=== PATIENT | female | born 1990 | race Caucasian/White ===

== ENCOUNTER 2017-06-12 14:16 | Inpatient (IN) | payer OTHER ==
[2017-06-12] MEDS ORDERED: KETAMINE 500 MG/10 ML VIAL ONE (14:20)
[2017-06-12] MEDS ORDERED: MIDAZOLAM 2 MG/2 ML VIAL ONE (14:21)
[2017-06-12] MEDS ORDERED: fentaNYL 250 MCG/5 ML INJ ONE ×2 (14:21→18:14)
[2017-06-12] MEDS ORDERED: KETAMINE 500 MG/10 ML VIAL NASAL ONE ×2 (14:25→16:45)
--- NOTE | 2017-06-12 14:26 | EDPHY ---
H & P Time Seen by Provider: 06/12/17 14:26 HPI/ROS: CHIEF COMPLAINT: Right leg injury HISTORY OF PRESENT ILLNESS: Patient brought in by ambulance from [facility]. She was a helmeted skier that hit a tree. Per EMS report her right leg head of her approximately 10 in diameter tree. She had immediate pain to the right thigh. She was not knocked out. She has no other complaints. She is otherwise healthy. She was given multiple doses of fentanyl as well as Versed in route to [facility]. Per EMS traction splint was applied by gizzard skin remover. Distal CMS has been intact throughout. It did not provide her much pain relief. Patient tells me she has normal feeling in her right foot. She denies other complaints. She denies chest pain, shortness of breath, abdominal pain or headache. She states her last menstrual period just ended and she has an IUD in place. Last oral intake was at 8:30 a.m. This morning. REVIEW OF SYSTEMS: Constitutional: No fever, no chills. Eyes: No discharge. ENT: No sore throat. Cardiovascular: No chest pain, no palpitations. Respiratory: No cough, no shortness of breath. Gastrointestinal: No abdominal pain, no vomiting. Genitourinary: No dysuria. Musculoskeletal: No back pain. Skin: No rashes. Neurological: No headache. General Appearance: Alert, in distress. Eyes: Pupils equal and round no pallor or injection. ENT, Mouth: Mucous membranes moist. Respiratory: There are no retractions, lungs are clear to auscultation. Cardiovascular: Regular rate and rhythm. Gastrointestinal: Abdomen is soft and nontender, no masses, bowel sounds normal. Neurological: Awake alert, movement in all 4 extremities, no focal neuro deficits. Skin: Warm and dry, no rashes. Musculoskeletal: Neck is supple nontender. Range of motion to right leg limited by pain and traction splint. Right foot sensation movement circulation intact. Some rotational deformity to right lower extremity. Bilateral upper extremities normal. Left lower extremity normal. Psychiatric: Patient is oriented X 3, there is no agitation. Medical/surgical history: Dental surgery otherwise noncontributory Social history: Lives in [place], nonsmoker. Constitutional: Initial Vital Signs Heart Rate 98 06/12/17 14:15 Respiratory Rate 20 06/12/17 14:15 Blood Pressure 117/79 06/12/17 14:15 O2 Sat (%) 95 06/12/17 14:15 O2 Delivery Mode Room Air Allergies/Adverse Reactions: amoxicillin Allergy (Verified 06/12/17 14:27) Penicillins Allergy (Verified 06/12/17 14:27) Home Medications: Medication Instructions Recorded Levothyroxine [Synthroid 100 mcg 100 mcg PO DAILY06 06/12/17 (*)] Methylphenidate HCl [Concerta] 18 mg PO DAILY PRN 06/12/17 Medical Decision Making - Diagnostics Imaging Results: Imaging Impressions Fluoroscopy 06/12/17 00:00 Impression: Intraoperative fluoroscopy provided during ORIF for a mid- diaphyseal femoral fracture Bedside radiology demonstrates midshaft femur fracture with displacement. Imaging: I viewed and interpreted images myself ED Course/Re-evaluation: Patient quite uncomfortable on arrival in emergency department an intranasal ketamine given. This provided considerable relief. Discussed patient with Dr. Juan Carlos De Souza at 2:44 p.m. and notified of femur fracture. He states he will call the OR with plan for ORIF. Discussed with Dr. Arias, trauma surgery, at 3:05 p.m.. Procedure: Trauma ultrasound. Limited echocardiogram for pericardial effusion. Limited bedside ultrasound was performed and interpreted by myself for the indication of: thoracoabdominal trauma utilizing the thoracoabdominal emergency ultrasound protocol. Limited transthoracic echocardiogram: The pericardium was visualized and found to be negative for pericardial fluid. The study was negative for pericardial effusion. Limited abdominal ultrasound for blunt abdominal trauma. 1) The right upper quadrant was visualized and was found to be negative for intraperitoneal fluid. 2) The left upper quadrant was visualized and found to be negative for intraperitoneal fluid. The study was felt to be negative for free intraperitoneal fluid. Limited pelvic ultrasound was conducted for abdominal trauma. The bladder was visualized and did not reveal an anechoic area outside of the adjacent urinary bladder. The study was felt to be negative for free intraperitoneal fluid. Patient requiring repeat analgesia while awaiting transfer to the OR. Multiple re-evaluations during patient's time in the emergency department shows pain under control. Remains alert, hemodynamically stable. Differential Diagnosis: Differential diagnosis includes but is not limited to blunt chest trauma, blunt abdominal trauma, pelvic fracture, femur fracture, hip fracture, concussion. After evaluation only injury noted in the emergency department is a midshaft femur fracture that is closed. No indication of head, chest, abdominal trauma. Patient will be admitted to the trauma surgery service with plan for surgical repair of her right femur fracture. Critical Care Time: I spent a total of 60 minutes of critical care time in obtaining history, performing a physical exam, bedside monitoring of interventions, collecting and interpreting tests and discussion with consultants but not including time spent performing procedures. - Data Points Medications Given: Hydrocodone Bitart/Acetaminophen ([place] 5/325) 1 - 2 tab PO Q6HRS PRN PRN Reason: Pain, Moderate Able to Take PO Stop: 06/22/17 15:21 Last Admin: 06/13/17 00:32 Dose: 1 tab Hydromorphone/Sodium Chloride (Hydromorphone) 0.2 - 0.5 mg IVP Q1 PRN PRN Reason: Pain, Severe Unable to Take PO Stop: 06/22/17 15:21 Last Admin: 06/13/17 04:40 Dose: 0.5 mg Hydromorphone/Sodium Chloride (Hydromorphone) 0.2 - 0.4 mg IV .Q5M PRN PRN Reason: Pain, Severe Stop: 06/22/17 17:56 Last Admin: 06/12/17 18:04 Dose: 0.4 mg Lactated Ringer's (Lr) 1,000 mls @ 125 mls/hr IV CONT NORY Stop: 12/09/17 15:29 Last Admin: 06/12/17 22:31 Dose: 1,000 mls Clindamycin Phosphate/Dextrose (Cleocin 900 Mg (Premix)) 50 mls @ 100 mls/hr IV Q8H NORY PRN Reason: Protocol Stop: 07/13/17 01:59 Last Admin: 06/13/17 02:30 Dose: 50 mls Levothyroxine Sodium (Synthroid) 100 mcg PO DAILY06 NORY Stop: 12/10/17 05:59 Last Admin: 06/13/17 04:40 Dose: 100 mcg Discontinued Medications Bacitracin (Bacitracin Syringe) Confirm Administered Dose 50,000 units IRR .STK- MED ONE Stop: 06/12/17 17:07 Last Admin: 06/12/17 19:23 Dose: 50,000 units Bupivacaine HCl/Epinephrine Bitart (Bupivacaine/Epi) Confirm Administered Dose 30 ml .ROUTE .STK-MED ONE Stop: 06/12/17 17:07 Last Admin: 06/12/17 19:25 Dose: 30 ml Fentanyl (Sublimaze) 100 mcg IVP ONCE ONE Stop: 06/12/17 16:56 Last Admin: 06/12/17 17:02 Dose: 100 mcg Fentanyl (Sublimaze) 25 - 100 mcg IVP Q5M PRN PRN Reason: PACU, IMMEDIATE Pain control Stop: 06/12/17 19:55 Last Admin: 06/12/17 22:02 Dose: 50 mcg Sodium Chloride (Ns) 1,000 mls @ 0 mls/hr IV ONCE ONE PRN Reason: Wide Open Stop: 06/12/17 14:38 Last Admin: 06/12/17 14:30 Dose: 1,000 mls Clindamycin Phosphate/Dextrose (Cleocin 900 Mg (Premix)) 50 mls @ 100 mls/hr IV ONCALL ONE PRN Reason: Protocol Stop: 06/12/17 17:58 Last Admin: 06/12/17 18:19 Dose: 50 mls Clindamycin Phosphate/Dextrose (Cleocin 900 Mg (Premix)) 50 mls @ 100 mls/hr IV Q8H NORY PRN Reason: Protocol Stop: 07/13/17 01:59 Last Admin: 06/13/17 02:51 Dose: Not Given Ketamine HCl (Ketamine) 50 mg NASAL EDNOW ONE Stop: 06/12/17 14:26 Last Admin: 06/12/17 14:26 Dose: 50 mg Ketamine HCl (Ketamine) 50 mg NASAL EDNOW ONE Stop: 06/12/17 16:46 Last Admin: 06/12/17 16:46 Dose: 50 mg Ondansetron HCl (Zofran) 2 - 4 mg IVP Q10M PRN PRN Reason: PACU, Nausea/Vomiting Stop: 06/12/17 19:55 Last Admin: 06/12/17 21:37 Dose: 4 mg Polymyxin B Sulfate (Polymyxin B Syringe) Confirm Administered Dose 500,000 unit IRR .STK-MED ONE Stop: 06/12/17 17:07 Last Admin: 06/12/17 19:27 Dose: 500,000 unit Departure - Departure Disposition: [facility]
[2017-06-12] MEDS ORDERED: NS 1,000 ML IV ONE (14:37)
[2017-06-12] MEDS ORDERED: ONDANSETRON 4 MG/2 ML VIAL IVP PRN ×2 (15:22→18:55)
[2017-06-12] MEDS ORDERED: ACETAMINOPHEN 325 MG TAB PO PRN (15:22)
[2017-06-12] MEDS ORDERED: ALBUTEROL 60 PUFFS/8 GM MDI IH PRN (15:26)
[2017-06-12] MEDS ORDERED: LR 1,000 ML IV SCH (15:30)
[2017-06-12] MEDS ORDERED: HYDROmorphONE/DILAUDID 2 MG/ML INJ ONE ×3 (15:31→17:47)
[2017-06-12] MEDS: HYDROmorphone HCL/NS 0.5 MG/ML SYR IVP PRN (15:35)
--- NOTE | 2017-06-12 15:41 | GHP ---
[f rep st] PREOP HISTORY AND PHYSICAL DATE OF ADMISSION: 06/12/2017 REASON FOR EVALUATION: Limited trauma. HISTORY OF PRESENT ILLNESS: 26-year-old healthy female, a helmeted skier, lost her footing on an ice patch while skiing at [place]. She apparently collided into a tree with her leading right leg. She denied loss of consciousness. She denied any other injuries. She was brought to the [facility] emergency room for further evaluation and management. Workup disclosed a displaced femoral fracture. Trauma has been requested for further evaluation and management. At present time, the patient is comfortable, having received a dose of ketamine. She is without any other specific complaints. She specifically denies headaches , visual changes, neck pain, chest pain, shortness of breath, or abdominal complaints. She denies extremity numbness or tingling. PAST MEDICAL HISTORY: Manda thyroiditis, asthma. PAST SURGICAL HISTORY: Denies. MEDICATIONS: ProAir p.r.n., levothyroxine. ALLERGIES: No known drug allergies. SOCIAL HISTORY: No significant alcohol or tobacco. 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 FAMILY HISTORY: Noncontributory. REVIEW OF SYSTEMS: Negative 10-point review. PHYSICAL EXAM: VITAL SIGNS: Blood pressure 120/80, pulse 98, respirations 20, 95% saturation on room air. GENERAL: The patient is currently alert, appropriate, comfortable. HEENT: Unremarkable. NECK: Nontender. Trachea midline without crepitus. HEART: Regular without murmurs. LUNGS: Clear without wheezes. CHEST WALL: Nontender without step-offs or deformities. ABDOMEN: Soft, nontender, nondistended. PELVIS: Nontender. SPINE: Thoracic and lumbar spines nontender. EXTREMITIES: 2+ femoral, popliteal, and dorsalis pedis pulses bilaterally. Right lower extremity in a traction splint. A warm, sensate foot. Normal left lower extremity. Normal bilateral upper extremities. IMAGING: Femur x-ray with a displaced distal femur fracture. IMPRESSION: Isolated femur fracture, status post ski injury. PLAN: Orthopedic Surgery has been consulted for reduction and fixation. No other acute traumatic issues are noted at this time. /[id number]/MODL MTDD
[2017-06-12] MEDS ORDERED: fentaNYL 100 MCG/2 ML INJ IVP ONE (16:55)
[2017-06-12] MEDS ORDERED: fentaNYL 100 MCG/2 ML INJ ONE ×2 (16:59→21:31)
[2017-06-12] MEDS ORDERED: POLYMYXIN B SULFATE 500,000 UNIT/10 ML SYR IRR ONE (17:06)
[2017-06-12] MEDS ORDERED: BACITRACIN 50,000 UNITS/10 ML SYR IRR ONE (17:06)
[2017-06-12] MEDS ORDERED: BUPIVACAINE/EPI 0.5% 30 ML SDV ONE (17:06)
[2017-06-12] MEDS ORDERED: CLINDAMYCIN 900 MG/DEXTROSE 50 ML IV ONE (17:29)
[2017-06-12] MEDS ORDERED: CLINDAMYCIN 900 MG/DEXTROSE/50 ML BAG IV ONE (17:33)
[2017-06-12] MEDS ORDERED: PROPOFOL/EMULSION 500 MG/50 ML BOTTLE IV ONE (17:55)
[2017-06-12] MEDS: HYDROmorphone HCL/NS 0.5 MG/ML SYR IV PRN ×2 (17:57→18:04)
--- NOTE | 2017-06-12 18:32 | GCON ---
[f rep st] CONSULTATION CHIEF COMPLAINT: Right lower extremity pain. HISTORY OF PRESENT ILLNESS: A 26-year-old female skier who lost control on an icy groomed run at [place] and hit a tree with her right leg. She denies head trauma or loss of consciousness. She denies any other pain other than her right thigh and increasingly right foot. X-rays were taken in the emergency department revealing a transverse distal femoral shaft fracture, with minimal comminution. She is currently denying any other complaints or any other sources of pain. She denies headaches, visual changes, neck pain, chest pain, shortness of breath, abdominal pain, numbness or tingling. PAST MEDICAL HISTORY: Manda thyroiditis, asthma, attention deficit hyperactivity disorder. PAST SURGERY HISTORY: None. MEDICATIONS: levothyroxine, ProAir as needed, Concerta. ALLERGIES: amoxicillin and penicillin. SOCIAL HISTORY: Patient denies tobacco or nicotine use. She admits to occasional marijuana use as well as a daily glass of wine. Tthe patient does admit to "1 hit of marijuana" this morning at 7:30 or 8 as well as sharing 1 beer around 9 a.m. between 3 people. FAMILY HISTORY: Noncontributory. REVIEW OF SYSTEMS: 10-point review of systems is negative except for as in HPI. PHYSICAL EXAMINATION: VITAL SIGNS: Blood pressure is 120/80, pulse 98, respirations 20, 95% O2 saturation on room air. GENERAL: The patient is awake , alert, and oriented x3. She is anxious and occasionally crying during her interview. HEENT: Unremarkable. Normocephalic, atraumatic. NECK: Nontender. RESPIRATORY: Easy nonlabored breathing. ABDOMEN: Soft, nontender, nondistended. PELVIS: Nontender to palpation. RIGHT LOWER EXTREMITY: In traction device. foot at 90 degrees of ER. She does not have tenderness to palpation over the greater trochanter. There is significant swelling of her right thigh; however, compartments are compressible. Her right lower extremity is in a traction splint with the distal aspect of the fracture site externally rotated 90 degrees compared to the proximal aspect. She has 2+ femoral, popliteal, and DP pulses bilaterally. Sensation is intact to light touch from L3 to S1. She has motor intact to EHL , FHL, tibialis anterior, and gastrocsoleus. IMAGING: Two views of the femur and 2 views of the hip reveal a distal 3rd femoral shaft fracture, transverse, with minimal comminution. There does not appear to be a femoral neck fracture. However, the AP of the hip x-ray is obscured. ASSESSMENT/PLAN: A 26-year-old female with a right distal femoral shaft simple transverse fracture. No femoral neck fracture is noted at this time; however, will be evaluated further. At this time I have recommended that the patient undergo closed reduction and intramedullary nailing of her right femur. The risks and benefits of the procedure were explained in great to detail, which include the inherent risks of general anesthesia, general risks of surgery including bleeding, infection, damage to surrounding anatomic structures. Specific to this procedure there is an increased incidence of hip pain at the nail entry site as well as abductor muscle or tendon damage due to the nail entry. There is also a risk of malunion, nonunion, rotational malalignment, symptomatic hardware, additional surgery, heterotopic ossification in the hip abductors, perforation of the femoral cortex, pudendal nerve injury using the fracture table. The patient understands and agrees with these risks and benefits and her consent was signed. All of her questions were answered. /[id number]/MODL MTDD
[2017-06-12] MEDS ORDERED: PROMETHAZINE HCL 25 MG/ML INJ IVP PRN (18:55)
[2017-06-12] MEDS ORDERED: ALBUTEROL 3 ML DEYVIAL IH PRN (18:55)
[2017-06-12] MEDS ORDERED: DIAZEPAM 5 MG/ML 1 ML SYR IVP PRN (18:55)
[2017-06-12] MEDS ORDERED: HYDROmorphone HCL/NS 0.5 MG/ML SYR IVP PRN ×2 (18:55→21:32)
[2017-06-12] MEDS ORDERED: DEXAMETHASONE 4 MG/ML VIAL IVP PRN (18:55)
[2017-06-12] MEDS ORDERED: LR 500 ML IV PRN (18:55)
[2017-06-12] MEDS ORDERED: NALOXONE HCL 0.4 MG/ML INJ IVP PRN (18:55)
--- NOTE | 2017-06-12 18:55 | PDANEPAE ---
ANE History of Present Illness here for R TFN ANE Past Medical History - Cardiovascular History Hx Hypertension: No Hx Arrhythmias: No Hx Chest Pain: No Hx Coronary Artery / Peripheral Vascular Disease: No Hx CHF / Valvular Disease: No Hx Palpitations: No - Pulmonary History Hx COPD: No Hx Asthma/Reactive Airway Disease: Yes Hx Recent Upper Respiratory Infection: No Hx Oxygen in Use at Home: No Hx Sleep Apnea: No - Endocrine History Hx Diabetes: No Hypothyroid: No Hyperthyroid: Yes - Renal History Hx Renal Disorders: No - Liver History Hx Hepatic Disorders: No - Neurological & Psychiatric Hx Hx Neurological and Psychiatric Disorders: No ANE Review of Systems Review of systems is: negative Review of Systems: ANE Patient History - Allergies Allergies/Adverse Reactions: amoxicillin Allergy (Verified 06/12/17 14:27) Penicillins Allergy (Verified 06/12/17 14:27) - Home Medications Home medications: home medication list seen and reviewed Home Medications: Levothyroxine [Synthroid 100 mcg (*)] 100 mcg PO DAILY06 06/12/17 [Last Taken ] Methylphenidate HCl [Concerta] 18 mg PO DAILY PRN 06/12/17 [Last Taken 06/11/17] - NPO status NPO Status: no food or drink >8 hours NPO Since - Liquids (Date): 06/12/17 NPO Since - Liquids (Time): 10:00 NPO Since - Solids (Date): 06/12/17 NPO Since - Solids (Time): 09:00 - Smoking Hx Smoking Status: Never smoked ANE Labs/Vital Signs - Vital Signs Vital Signs: reviewed preoperatively; see RN documention for details Blood Pressure: 117/79 Heart Rate: 98 Respiratory Rate: 20 O2 Sat (%): 95 Height: 172.72 cm Weight: 60 kg ANE Physical Exam - Airway Neck exam: FROM Mallampati Score: Class 1 - Pulmonary Pulmonary: no respiratory distress - Cardiovascular Cardiovascular: regular rate and rhythym - ASA Status ASA Status: II ANE Anesthesia Plan Anesthesia Plan: general endotracheal anesthesia Urgent/Emergent Case: July walton completed preop but documented later for safe timely pt care
[2017-06-12] MEDS ORDERED: ROCURONIUM 100 MG/10 ML VIAL ONE (20:45)
[2017-06-12] MEDS ORDERED: ONDANSETRON 4 MG/2 ML VIAL ONE (21:31)
[2017-06-12] MEDS: fentaNYL 100 MCG/2 ML INJ IVP PRN ×2 (21:35→22:02)
--- NOTE | 2017-06-12 21:37 | POSTANESTH ---
Post Anesthetic Evaluation Cardiovascular Status: Normal, Stable Respiratory Status: Normal, Stable Level of Consciousness/Mental Status: Can Participate in Eval Pain Control: Inadeq, Add Tx Required Nausea/Vomiting Control: Adequate, Prn Tx Ordered Complications Possibly Related to Anesthesia: None Noted
[2017-06-12] MEDS ORDERED: Methylphenidate Hcl [Concerta] 18 MG PO PRN (21:38)
--- NOTE | 2017-06-12 21:56 | POSTOPPROG ---
Post Op Note Date of Operation: 06/12/17 Surgeon: Juan Carlos De Souza Anesthesiologist: MD Thanh Anesthesia: GET(General Endotracheal) Pre-op Diagnosis: Right transverse distal diaphyseal femoral fracture Post-op Diagnosis: same Procedure: Right femur closed reduction IMN Inf/Abcess present in the surg proc area at time of surgery?: No EBL: 50-100
--- NOTE | 2017-06-12 22:38 | GOP ---
[f rep st] OPERATIVE REPORT DATE OF OPERATION: 06/12/2017 SURGEON: Juan Carlos De Souza MD PREOPERATIVE DIAGNOSIS: Right transverse distal diaphyseal femur fracture. POSTOPERATIVE DIAGNOSIS: Right transverse distal diaphyseal femur fracture. PROCEDURE PERFORMED: Right femur closed reduction, intramedullary nailing. FINDINGS: Traction x-rays with rotation of the femoral neck did not demonstrate any nondisplaced femoral neck fracture. There was minimal comminution at the transverse fracture area. Thigh compartments were swollen but soft and compressible. SPECIMENS: None. INDICATIONS: A 26-year-old female with a skiing accident, sustaining a right femur fracture. We extensively discussed the risks and benefits of the procedure, and the patient elected to proceed, and the consent was signed. DESCRIPTION OF PROCEDURE: Patient was seen in the preoperative holding area. The right lower extremity was identified and marked. She was taken to the operating room, induced under general anesthesia on her hospital bed. A Evans catheter was placed. She was then transferred to the [facility] fracture table. All bony prominences were well padded. The right arm was adducted across the chest; and the left leg was flexed, abducted, and externally rotated in a well leg hunt. The right lower extremity was then prepped and draped in the usual sterile fashion. A time-out was performed. Patient name, laterality, procedure , antibiotics, and allergies were all confirmed. A longitudinal slightly oblique incision was made just proximal to the greater trochanter. Bovie electrocautery was used through subcutaneous tissue down to the fascia. A knife was then used to go through the fascia caridad. Blunt dissection was made down to the greater trochanter. The entry pin was placed into the piriformis fossa, confirmed with AP and lateral x-rays. This was driven intramedullary on x-ray guidance down to the level of the lesser trochanter, followed by a cannulated entry reamer. Tissue protectors were used to minimize soft tissue damage to the abductors. Next, a long guidewire was placed intramedullary down through the entry hole to the edge of the fracture site. Fluoroscopic views were taken, and the fracture was reduced with manual manipulation as well as an F tool, and the guidewire was placed down to the physeal scar of the distal femur. The medullary canal was then sequentially reamed up to 10.5 for a 9 mm nail, and length was measured to be 380. The nail was then inserted over the guidewire down to the fracture site. Fracture reduction in both the AP and lateral planes as well as rotationally was confirmed under x-ray, and the nail was inserted down to the distal femur. The guidewire was then removed. The aiming guide in the proximal revenue cycle consultant of the nail was attached, and the proximal locking screw was placed. Next, perfect anvik technique was utilized at the distal aspect of the nail. Skin incisions were made over the distal locking holes as well as through the iliotibial band. Blunt dissection was made down to bone. The distal locking holes were drilled bicortically and appropriately measured. Screws were placed. Final x- rays were then taken, AP laterals of both the knee fracture site and hip. At the end of the case, all surgical counts were correct. The wounds were copiously irrigated, especially the hip site, to remove any bony debris within the abductors. The tensor fascia caridad in the proximal incision was closed with 0 Vicryl, subcutaneous tissue in all wounds was closed with 2-0 Vicryl, and skin was closed with 3-0 Monocryl. Dermabond, Steri-Strips, sterile dressings were then applied. Patient was safely awakened and taken to the recovery room in stable condition. In PACU, patient's thigh and calf compartments were soft and compressible. Pain was well controlled. Sensation was intact to light touch from L3 to S1. She had intact EHL, FHL, tibialis anterior, and gastroc soleus. Her resting external rotation of the right lower extremity matched the left lower extremity. SURGEON: Juan Carlos De Souza MD. COMPLICATIONS: None. IMPLANTS: Include a Synthes 9 x 380 mm intramedullary nail with one 40 mm proximal locking screw and 2 distal locking screws. DISCHARGE ORDERS: Patient will be weightbearing as tolerated with assistance and crutches as needed for pain. /[id number]/MODL MTDD
[2017-06-13] MEDS: HYDROCODONE/APAP 5/325 TAB PO PRN ×5 (00:03→20:43)
[2017-06-13] MEDS ORDERED: CLINDAMYCIN 900 MG/DEXTROSE 50 ML IV SCH (02:00)
[2017-06-13] MEDS: CLINDAMYCIN 900 MG/DEXTROSE 50 ML IV SCH ×3 (02:30→17:56)
[2017-06-13] MEDS: HYDROmorphone HCL/NS 0.5 MG/ML SYR IVP PRN ×2 (02:30→04:40)
[2017-06-13] MEDS: LEVOTHYROXINE 100 MCG TAB PO SCH (04:40)
[2017-06-13] MEDS: DIAZEPAM 5 MG TAB PO PRN ×2 (09:35→20:43)
[2017-06-13] MEDS: ENOXAPARIN 40 MG/0.4 ML SYR SC SCH (09:35)
[2017-06-13] MEDS: HYDROmorphone HCL/NS 0.5 MG/ML SYR IV PRN ×3 (10:33→18:42)
--- NOTE | 2017-06-13 10:54 | TRAUMAPN ---
Trauma Progress Note Assessment/Plan: 26-year-old female status post ski accident with isolated right-sided femur fracture s/p OR fixation TERTIARY EXAM Neuro: Pain appears well controlled, she is having some spasms on her operative side, she is trying Valium this morning. Remains neurovascularly intact Pulm: Stable on room air, discussed incentive spirometry. CV: Hemodynamically stable Abdomen: Soft, nondistended nontender. Tolerating a regular diet Renal: Voiding Heme: Stable Id: Afebrile Ortho: Right femur fracture status post ORIF. Weight-bearing restrictions per Dr. De Souza Dispo: 26-year-old female status post isolated femur fracture, no additional injuries identified on tertiary exam this morning. Trauma surgery to sign off, will defer to Orthopedics for disposition. Subjective: Doing well, having some spasms Objective: Vital Signs Temp Pulse Resp BP Pulse Ox 37.1 C 58 L 14 91/58 L 100 06/13/17 08:00 06/13/17 08:00 06/13/17 08:00 06/13/17 08:00 06/13/17 08:00 06/12/17 06/13/17 06/14/17 05:59 05:59 05:59 Intake Total 3975 Output Total 1600 1100 Balance 3175 -1100
--- NOTE | 2017-06-13 12:30 | ASMTCMCOM ---
CM Note CM Note Notes: Pt had surgery for femur fx. Awaiting PT/OT notes. CM to follow. Date Signed: 06/13/2017 12:29 PM Electronically Signed By:Katherin Bustamante LCSW
--- NOTE | 2017-06-13 13:02 | SOAPPROG ---
SOAP Progress Note Assessment/Plan: Assessment: Postop day 1 status post right femur intramedullary nailing Plan: Weight bear as tolerated with assistance, PTOT Analgesics as needed, wean off narcotics as tolerated, the Valium as needed for muscle spasms Lovenox, SCDs, Osorio's for DVT prophylaxis Incentive spirometry 10 times per hour Home today if pain controlled 06/13/17 12:59 Subjective: No acute events overnight. Pain relatively well controlled. Having some muscle spasms. Foot pain is completely resolved. Denies fevers chills nausea vomiting chest pain shortness of breath numbness or tingling Objective: Vital Signs Temp Pulse Resp BP Pulse Ox 36.9 C 74 14 100/52 L 98 06/13/17 11:35 06/13/17 11:35 06/13/17 11:35 06/13/17 11:35 06/13/17 11:35 06/12/17 06/13/17 06/14/17 05:59 05:59 05:59 Intake Total 3975 500 Output Total 1600 1800 Balance 2375 -1300 Awake alert and oriented x3 no acute distress Easy nonlabored breathing Right lower extremity incisions clean dry intact no erythema drainage or signs of infection Thigh compartments: But compressible moderately tender Sensation intact to light touch L3-S1 Motor intact EHL FHL tibialis anterior gastrocsoleus No calf pain Palpable DP PT pulses - Time Spent With Patient Time Spent With Patient: 20 - Pending Discharge Pending Discharge Within 24 Hours: Yes Pending Discharge Date: 06/13/17 Pending Discharge Time: 17:00 ICD10 Worksheet Patient Problems: Problems Problem Status Onset Femur fracture, right Acute - ICD10 Problem Qualifiers (1) Femur fracture, right
--- NOTE | 2017-06-13 14:54 | PDMN ---
Medical Necessity Medical necessity: C/M review: [place] [facility] [place] F[place], Shaft, Internal Fixation: Acute right transverse distal diaphyseal femoral fracture requiring urgent surgery 06/12/2017 - Right femur closed resection, intramedullary nailing, acute and persistent postop pain requiring ongoing frequent doses IV Dilaudid, IV Clindamycin Q 8 hrs., IV LR 125 ml/hr. infusion, acute inpt PT/OT, comorbid patient had a ski accident and hit a tree with her right leg just prior to this admission. PAC anticipates > 2 MN LOS for ongoing med nec for eval and TX of above.
[2017-06-14] MEDS: CLINDAMYCIN 900 MG/DEXTROSE 50 ML IV SCH ×2 (02:10→11:24)
[2017-06-14] MEDS: HYDROCODONE/APAP 5/325 TAB PO PRN (02:45)
[2017-06-14] MEDS: LEVOTHYROXINE 100 MCG TAB PO SCH (05:54)
[2017-06-14] MEDS: DIAZEPAM 5 MG TAB PO PRN (07:34)
[2017-06-14] MEDS: HYDROmorphone HCL/NS 0.5 MG/ML SYR IVP PRN (08:43)
--- NOTE | 2017-06-14 12:39 | SOAPPROG ---
SOAP Progress Note Assessment/Plan: Assessment: Postop day 2 status post right femur intramedullary nailing Plan: Decreased tolerance to pain. Analgesic regimen modified to [place] 10/325, IV Dilaudid as needed, switch Valium to Flexeril 5 mg three times daily, add Lyrica 75 mg twice daily Weight bear as tolerated with assistance, PTOT Lovenox, SCDs, Osorio's for DVT prophylaxis Incentive spirometry 10 times per hour Home today if pain controlled 06/13/17 12:59 06/14/17 12:33 06/14/17 12:42 Subjective: Patient with increased pain today. Did sleep 6 hr last night however. Unable to adequately participate and partake in physical therapy today. She denies numbness tingling fevers chills nausea vomiting chest pain or shortness of breath. States she is feeling "stoned" from her pain medications. Has only been up once today and was less successful than yesterday. Objective: Vital Signs Temp Pulse Resp BP Pulse Ox 37.0 C 82 18 98/53 L 100 06/14/17 12:00 06/14/17 12:00 06/14/17 12:00 06/14/17 12:00 06/14/17 12:00 Laboratory Results 06/14/17 04:18 06/13/17 06/14/17 06/15/17 05:59 05:59 05:59 Intake Total 3975 2000 20 Output Total 1600 2900 450 Balance 2375 -900 -430 Awake alert and oriented x3, lethargic, Easy nonlabored breathing Right lower extremity incisions clean dry intact no erythema drainage or signs of infection Thigh compartments: swollen but soft and compressible moderately tender mostly at fracture site Sensation intact to light touch L3-S1 Motor intact EHL FHL tibialis anterior gastrocsoleus No calf pain Palpable DP PT pulses - Time Spent With Patient Time Spent With Patient: 20 ICD10 Worksheet Patient Problems: Problems Problem Status Onset Femur fracture, right Acute - ICD10 Problem Qualifiers (1) Femur fracture, right
[2017-06-14] MEDS: CYCLOBENZAPRINE 10 MG TAB PO PRN ×2 (12:46→15:57)
--- NOTE | 2017-06-14 15:10 | ASMTCMCOM ---
CM Note CM Note Notes: 26yr old female admitted after hitting a tree skiing and fracturing her R femur. She is a [employer] in [place]. Therapy recommendations: PT home; OT home vs HC as of today 06/14. Patient has [employer]. May not have needs on discharge. Date Signed: 06/14/2017 03:09 PM Electronically Signed By:Josefa Prakash LCSW
[2017-06-14] MEDS: ENOXAPARIN 40 MG/0.4 ML SYR SC SCH (15:57)
[2017-06-14] MEDS: PREGABALIN 75 MG CAP PO SCH (15:57)
[2017-06-14] MEDS: HYDROCODONE/APAP 10/325 TAB PO PRN (20:24)
[2017-06-15] MEDS: PREGABALIN 75 MG CAP PO SCH ×2 (00:57→08:55)
[2017-06-15] MEDS: HYDROCODONE/APAP 10/325 TAB PO PRN ×2 (06:15→12:41)
[2017-06-15] MEDS: LEVOTHYROXINE 100 MCG TAB PO SCH (06:15)
[2017-06-15] MEDS: ENOXAPARIN 40 MG/0.4 ML SYR SC SCH (08:55)
[2017-06-15 12:29] VITALS: BP 100/63
--- NOTE | 2017-06-15 13:57 | ASMTCMCOM ---
CM Note CM Note Notes: Pt medically stable for d/c with family support, no CM d/c needs identified. Date Signed: 06/15/2017 01:57 PM Electronically Signed By:TRISTIAN Marx
--- NOTE | 2017-06-15 20:57 | SOAPPROG ---
SOAP Progress Note Assessment/Plan: Assessment: Postop day 3 status post right femur intramedullary nailing Plan: Significant improvement in pain and symptoms with new analgesic regimen modified to [place] 10/325, Flexeril 5 mg three times daily, and Lyrica 75 mg twice daily. Pt has only require [place] once Weight bear as tolerated with assistance, PTOT Lovenox x6wks unless patient demonstrate adequate mobility at first postop visit , SCDs, Osorio's for DVT prophylaxis Incentive spirometry 10 times per hour Home today 06/15/17 09:40 Subjective: No acute events overnight. Pt "feels like a new person" today. New pain regimen has dramatically helped her pain and symptoms. Has been ambulating much more successfully. denies f/c/cp/sob/n/v/numbness/tingling. Has not had BM as of yet. Objective: Vital Signs Temp Pulse Resp BP Pulse Ox 36.4 C 99 16 100/63 99 06/15/17 12:00 06/15/17 12:00 06/15/17 12:00 06/15/17 12:00 06/15/17 12:00 Laboratory Results 06/14/17 04:18 06/14/17 06/15/17 06/16/17 05:59 05:59 05:59 Intake Total 2000 470 Output Total 2900 3050 Balance -900 -2580 Awake alert and oriented x3, lethargic, Easy nonlabored breathing Right lower extremity incisions clean dry intact no erythema drainage or signs of infection Thigh compartments: mild swelling but soft and compressible mildly tender at fracture site Sensation intact to light touch L3-S1 Motor intact EHL FHL tibialis anterior gastrocsoleus No calf pain Palpable DP PT pulses - Time Spent With Patient Time Spent With Patient: 15 ICD10 Worksheet Patient Problems: Problems Problem Status Onset Femur fracture, right Acute - ICD10 Problem Qualifiers (1) Femur fracture, right
--- NOTE | 2017-06-15 21:43 | GDS ---
[f rep st] DISCHARGE SUMMARY ADMISSION DIAGNOSES: Right femoral shaft acute fracture. DISCHARGE DIAGNOSIS: Right femoral shaft acute fracture. PROCEDURES PERFORMED: On June 12, 2017, patient underwent a closed reduction and intramedullary nailing of a diaphyseal femoral shaft fracture. HISTORY OF PRESENT ILLNESS: This is a 26-year-old female who presented with an acute right femoral shaft fracture from a skiing accident in [place]. For details of the patient's initial presentations, please see the orthopaedic consultation and the H and P dictated on June 12, 2017. HOSPITAL COURSE: The patient was admitted on the above date for the above injury and underwent the above procedure without complication. She was admitted for observation and pain control. Postoperatively, on postop day 1, she initially did well with physical therapy and pain control. She was seen ambulating with a walker on the morning of postop day 1, however, later that day , her pain began to become less predictably controlled and was thus held for another night about acute pain management. The patient's symptoms were more difficult to control on postoperative day 2 and the initial pain regimen was causing the patient to be lethargic and unable to participate in physical therapy and not controlling her pain adequately. The pain medications were substantially revised and on postoperative day 3, her symptoms and conditions dramatically improved. The patient participated in therapy well and was able and willing to go home on postoperative day 3. She was given Lovenox for 6 weeks, which will be discontinued or shortened to 3 weeks if the patient is ambulating adequately at her first postoperative visit. She was also given the current pain medication regimen, which was working for her, which included [place] 10/325, Flexeril 5 mg t.i.d. and Lyrica 75 mg b.i.d. She is weightbearing as tolerated. Follow up in the office with myself, Dr. De Souza, in 10 days. DISCHARGE DISPOSITION: Home. CONDITION ON DISCHARGE: Stable. /[id number]/MODL MTDD
== END 2017-06-15 13:39 | disposition home or self-care (01) | DRG 482 ==
LOC: INTOOBSV 15:04 → OBSVTOIN 15:04 → F3N 22:17
PROVIDERS: ADMIT Surgery; ATTEND Surgery
PROC: 0QS806Z Reposition Right Femoral Shaft with Intramedullary Internal Fixation Device, Open Approach (ICD-10-PCS; principal; 2017-06-12 17:30)
DX: S72.321A Displaced transverse fracture of shaft of right femur, initial encounter for closed fracture (principal); V00.322A Snow-skier colliding with stationary object, initial encounter; Y92.838 Other recreation area as the place of occurrence of the external cause; J45.909 Unspecified asthma, uncomplicated; E06.3 Autoimmune thyroiditis; F90.9 Attention-deficit hyperactivity disorder, unspecified type
CPT/HCPCS: 97110-GP; 97116-GP; 97161-GP; 97165-GO; 97530-GO; 97530-GP; 97535-GO; C1713; G0378; J1170; J1650; J2250; J2405; J2704; J3010